=== PATIENT | male | born 1965 | race Caucasian/White ===

== ENCOUNTER 2018-08-23 17:43 | Emergency (ER) | payer OTHER ==
[2018-08-23 17:50] VITALS: BP 140/82; PULSE 62; BMI 25.8
[2018-08-23] MEDS ORDERED: IBUPROFEN 600 MG TABLET (FP) PO ONE ×2 (18:10→18:31)
[2018-08-23] MEDS ORDERED: ACETAMINOPHEN 325 MG TABLET (FP) PO ONE (18:10)
[2018-08-23] MEDS ORDERED: DIPHTH,PERTUSS(ACELL),TET 0.5 ML DISP.SYRIN IM ONE ×2 (18:16→18:18)
[2018-08-23] MEDS ORDERED: ACETAMINOPHEN 325 MG TABLET (FP) ONE (18:16)
--- NOTE | 2018-08-23 18:16 | PDOC ---
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 Patient was entraining today and after stepping in a puddle tried to walk downstairs losing his balance and sliding feetfirst down the stairs onto his left arm. He denies any neck or back pain. He denies head trauma or any loss of consciousness. No recent travel or sick contacts. PAST MEDICAL HISTORY: see HPI SURGICAL HISTORY: see HPI ALLERGIES: shellfish REVIEW OF SYSTEMS General/Constitutional: Denies fever or chills. Denies weakness, weight change. HEENT: Denies change in vision. Denies ear pain or discharge. Denies sore throat. Cardiovascular: Denies chest pain or shortness of breath. Respiratory: Denies cough, wheezing, or hemoptysis. Gastrointestinal: Denies nausea, vomiting, diarrhea or constipation. Denies rectal bleeding. Genitourinary: Denies dysuria, frequency, or change in urination. Musculoskeletal: see HPI Skin and breasts: Denies rash or easy bruising. Neurologic: Denies headache, vertigo, loss of consciousness, or loss of sensation. Psychiatric: Denies depression or anxiety. Endocrine: Denies increased thirst. Denies abnormal weight change. Hematologic/Lymphatic: Denies anemia, easy bleeding, or history of blood clots. Allergic/Immunologic: Denies hives or skin allergy. Denies latex allergy. PHYSICAL EXAM General Appearance: Well-appearing, appropriately dressed. No apparent distress , no intoxication. HEENT: EOMI, PERRLA, normal ENT inspection, normal voice, TMs normal, pharynx normal. No conjunctival pallor. No photophobia, scleral icterus. Neck: Supple. Trachea midline. No tenderness, rigidity, carotid bruit, stridor , lymphadenopathy, or thyromegaly. Respiratory/Chest: Lungs CTAB. No shortness of breath, chest tenderness, respiratory distress, accessory muscle use. No crackles, rales, rhonchi, stridor , wheezing, dullness Cardiovascular: RRR. S1, S2. No JVD, murmur, bradycardia, tachycardia. Musculoskeletal/Extremities: Muscle spasm present over the left trapezius muscle at the insertion point at the shoulder. Full range of motion of shoulder noted. No bony tenderness to bones of the shoulder, humerus, radius or ulna. Full range of motion of elbow. Neurovascular intact. Radial pulses 2+ bilaterally. Mask Design Engineer strength 5/5 bilaterally Integumentary: 7cmx2.5cm linear abrasion present to left forearm Neurologic: airport operations coordinator II-XII intact. Fully oriented, alert. Appropriate mood/affect. Motor strength 5/5. No appreciable EOM palsy, facial droop or sensory deficit. Past History - Past Medical History Allergies/Adverse Reactions: Allergies Allergy/AdvReac Type Severity Reaction Status Date / Time Shellfish Allergy Itching Verified 08/23/18 17:46 Home Medications: Ambulatory Orders Alfuzosin HCl [Alfuzosin HCl ER] 10 mg PO ASDIR 08/23/18 Budesonide/Formeterol Fumarate [SYMBICORT 160/4.5mcg -] 1 inh PO BID 08/23/18 Ezetimibe [Zetia -] 10 mg PO DAILY 08/23/18 Methocarbamol [Robaxin -] 1,500 mg PO Q8H PRN #30 tablet 08/23/18 Montelukast Sodium [Singulair] 10 mg PO HS 08/23/18 Rosuvastatin [Crestor -] 10 mg PO DAILY 08/23/18 Hypercholesterolemia: Yes - Immunization History Immunization Up to Date: Yes - Suicide/Smoking/Psychosocial Hx Smoking Status: No Smoking History: Smoker current status UNK Number of Cigarettes Smoked Daily: 0 *Physical Exam - Vital Signs Last Vital Signs Temp Pulse Resp BP Pulse Ox 62 16 140/82 98 08/23/18 17:49 08/23/18 17:49 08/23/18 17:49 08/23/18 17:49 Moderate Sedation - Procedure Monitoring Vital Signs: Procedure Monitoring Vital Signs Temperature Pulse Rate 62 08/23/18 17:49 Respiratory Rate 16 08/23/18 17:49 Blood Pressure 140/82 08/23/18 17:49 O2 Sat by Pulse Oximetry (%) 98 08/23/18 17:49 Medical Decision Making - Medical Decision Making 08/23/18 18:16 A/P: 53-year-old male with left shoulder and forearm pain status post fall X-rays of shoulder and forearm Tylenol 650 mg orally now Motrin 600 mg orally now Boostrix IM Reassess 08/23/18 18:36 X-ray of the left shoulder as read by me: No acute fractures or dislocations present. Surgical hardware noted which appears intact. X-ray of the forearm as read by me no fractures or dislocations present. No abnormality present. Discharge home *DC/Admit/Observation/Transfer Diagnosis at time of Disposition: Left forearm pain Shoulder pain, left Qualifiers: Chronicity: acute Qualified Code(s): M25.512 - Pain in left shoulder Abrasion forearm Qualifiers: Encounter type: initial encounter Laterality: left Qualified Code(s): S50.812A - Abrasion of left forearm, initial encounter - Discharge Dispostion Disposition: HOME Condition at time of disposition: Stable Decision to Admit order: No - Prescriptions Prescriptions: Methocarbamol [Robaxin -] 1,500 mg PO Q8H PRN #30 tablet PRN Reason: Moderate Pain - Referrals - Patient Instructions Additional Instructions: Rest, no heavy lifting or exercise until pain is resolved Hot soaks to neck and low back as often as possible/hot showers or Jacuzzis No massage or therapy until spasm is gone Continue ibuprofen 2-200 mg tablets every 6 hours for the next 3 days then as needed for pain and swelling Robaxin 1500mg every 8 hours as needed for spasm If not significant improvement within 24 hours with medication and rest regime, followup with private physician for change in medications and /or therapy. - Post Discharge Activity
== END 2018-08-23 18:44 | disposition home or self-care (01) ==
LOC: JERFT 17:43
PROC: 3E0234Z Introduction of Serum, Toxoid and Vaccine into Muscle, Percutaneous Approach (ICD-10-PCS; principal; 2018-08-23)
DX: M25.512 Pain in left shoulder (principal); M79.632 Pain in left forearm; S50.812A Abrasion of left forearm, initial encounter; W10.8XXA Fall (on) (from) other stairs and steps, initial encounter; Y93.89 Activity, other specified; Y92.89 Other specified places as the place of occurrence of the external cause; Y99.0 Civilian activity done for income or pay; E78.00 Pure hypercholesterolemia, unspecified
CPT/HCPCS: 73030-TC-LT-FY; 73090-TC-LT-FY; 90715; 99281-25